=== PATIENT | female | born 1960 | race Caucasian/White ===

== ENCOUNTER 2023-12-20 13:28 | Emergency (ER) | payer OTHER ==
[~2023-12-20] VITALS: Ht 162.6 cm; Wt 81.7 kg
[2023-12-20 14:11] VITALS: BP 158/78
== END 2023-12-20 16:58 | disposition home or self-care (01) ==
LOC: ER 13:28
DX: M25.512 Pain in left shoulder (principal); F17.200 Nicotine dependence, unspecified, uncomplicated; Z88.0 Allergy status to penicillin; Z88.8 Allergy status to other drugs, medicaments and biological substances

== ENCOUNTER 2024-02-15 09:27 | Day surgery (SDC) | payer OTHER ==
[~2024-02-15] VITALS: Ht 162.6 cm; Wt 83.1 kg
[~2024-02-15 09:27] MED LIST: CEFP200 PO; FLUSAL1005; Flonase 0.05% N16 GM; IBUP800 PO; LIDO700A20 TOP; Lactated Ringer's 1,000 ML IV ONE; Percocet 5-3251 EACH PO; Tamiflu75 MG PO
[2024-02-15] MEDS ORDERED: CeFAZolin Sodium 2,000 MG VIAL ONE (09:44)
[2024-02-15] MEDS ORDERED: NS 50 ML IV ONE (09:44)
[2024-02-15] MEDS ORDERED: Tranexamic Acid 100 ML IV ONE (09:52)
[2024-02-15] MEDS ORDERED: GABA100 (09:54)
[2024-02-15] MEDS ORDERED: DULO60 (09:54)
[2024-02-15] MEDS ORDERED: LOSA25 (09:54)
[2024-02-15] MEDS ORDERED: VITAMIN B12500 MCG (09:55)
[2024-02-15] MEDS ORDERED: ASCO500 (09:55)
[2024-02-15] MEDS ORDERED: TEMA30 (09:55)
[2024-02-15] MEDS ORDERED: JOINT SUPPLEMENT (09:56)
[2024-02-15] MEDS ORDERED: VITAMIN D310 MC4 (09:56)
[2024-02-15] MEDS ORDERED: K2-D3 MAX 180-1 EACH (09:57)
[2024-02-15] MEDS ORDERED: CHLO4 (09:57)
[2024-02-15] MEDS ORDERED: Midazolam HCl 1MG / ML 2ML Vial ONE (10:09)
[2024-02-15] MEDS ORDERED: FentaNYL Citrate 50 MCG/ML 2 ML Injection ONE (10:09)
[2024-02-15] MEDS ORDERED: Ropivacaine 0.2% HCl/Pf 2 MG/ML 20ML Vial ONE (10:12)
[2024-02-15] MEDS ORDERED: Lactated Ringer's 1,000 ML IV ONE (10:19)
[2024-02-15] MEDS ORDERED: propofoL 20 ML IV ONE (10:34)
[2024-02-15] MEDS ORDERED: Ondansetron HCl 2 MG / ML 2ML Vial ONE (10:44)
[2024-02-15] MEDS ORDERED: Dexamethasone Sod Phos 10 MG/ML 1ML VIAL ONE (10:44)
[2024-02-15] MEDS ORDERED: Ketorolac Tromethamine 30mg Vial ONE (10:45)
[2024-02-15] MEDS ORDERED: Lidocaine 1%-Epineph 1:100000 20 ML MDV INJ ONE (11:00)
[2024-02-15] MEDS ORDERED: EPINEPhrine HCl 1 MG/ML 1ML Amp XX ONE (11:00)
[2024-02-15 12:33] VITALS: BP 118/80
--- NOTE | 2024-02-15 12:59 | NUR ---
02/15/24 [id number] Luana Cole PT. VERBALIZES HAVING JUST A LITTLE BIT OF A SORE THROAT. PT. DRINKING WATER/APPLE JUICE & EATING CRACKERS. PT. VERBALIZES ABLE TO FEEL TOUCH TO FINGERS. POLAR LYUBOV INTACT. LEFT ELBOW AREA UP ON PILLOW IN RECLINER.
== END 2024-02-15 13:55 | disposition home or self-care (01) ==
LOC: ORSCSDS 09:27
PROVIDERS: Orthopaedic Surgery Sports Medicine
PROC: 0RNK4ZZ Release Left Shoulder Joint, Percutaneous Endoscopic Approach (ICD-10-PCS; principal; 2024-02-15 11:00)
PROC: 0LM24ZZ Reattachment of Left Shoulder Tendon, Percutaneous Endoscopic Approach (ICD-10-PCS; principal; 2024-02-15 11:00)
DX: M75.122 Complete rotator cuff tear or rupture of left shoulder, not specified as traumatic (principal); I10 Essential (primary) hypertension; J45.909 Unspecified asthma, uncomplicated; I82.0 Budd-Chiari syndrome; F41.9 Anxiety disorder, unspecified; Z79.899 Other long term (current) drug therapy
CPT/HCPCS: C1713; J0171; J0690; J1100; J1885; J2250; J2405; J2704; J2795; J3010; J7120